=== PATIENT | male | born 1950 | race Caucasian/White ===

== ENCOUNTER 2022-06-03 17:00 | Inpatient (IN) ==
[2022-06-03] MEDS ORDERED: Ipratropium/Albuterol Neb 3 ML IH PRN (17:09)
[2022-06-03] MEDS ORDERED: *HR* Dextrose 50 % in Water (Syg) 50 ML SYRINGE IVP PRN (17:14)
[2022-06-03] MEDS ORDERED: D5% in Water 1,000 ML IVC PRN (17:14)
[2022-06-03] MEDS ORDERED: Dextrose Gel 15 GM/37.5 ML TUBE PO PRN ×2 (17:14)
[2022-06-03] MEDS ORDERED: Ondansetron ODT 4 MG TAB.RAPDIS SL PRN (17:16)
[2022-06-03] MEDS: GlipiZIDE 5 MG TABLET PO SCH (20:44)
[2022-06-03] MEDS: *HR* Heparin 5,000 UNIT/ML VIAL SQ SCH (20:44)
[2022-06-03] MEDS: Melatonin 3 MG TABLET PO SCH (20:45)
[2022-06-03] MEDS: Pregabalin 50 MG CAPSULE PO SCH (20:45)
[2022-06-03] MEDS: *HR* Metformin 500 MG TABLET PO SCH (20:46)
[2022-06-03] MEDS: Insulin LISPRO 300 UNITS/3 ML VIAL SUBQ SCH (20:53)
[2022-06-03] MEDS: Acetaminophen 325 MG TABLET PO PRN (20:58)
[2022-06-03] MEDS: Latanoprost 2.5 ML BOTTLE BOTH EYES SCH (20:59)
[2022-06-03] MEDS ORDERED: [UNRECOGNIZED DRUG - OTHER] BOTH EYES SCH (21:00)
[2022-06-03] MEDS ORDERED: Insulin DETEMIR 100 UNIT/ML per UNIT SUBQ ONE (21:00)
[2022-06-03] MEDS ORDERED: PROPYLENE GLYCOL BOTH EYES SCH (21:00)
[2022-06-03] MEDS ORDERED: GLYCERIN BOTH EYES SCH (21:00)
[2022-06-03] MEDS: Budesonide/Formoterol 160/4.5 1 PUFF INH IH SCH (21:54)
[2022-06-03] MEDS: Ipratropium/Albuterol Neb 3 ML IH SCH (21:54)
[2022-06-04] MEDS: *HR* Heparin 5,000 UNIT/ML VIAL SQ SCH ×2 (05:47→17:00)
[2022-06-04 08:12] LABS: Basophils # 0.2 K/mcL (0.0-0.2); Eosinophils # 0.4 K/mcL (0.0-0.6); Eosinophils % 1.7 %; Hematocrit 42.6 % (37.5-50.1); Immature Granulocytes % 2.6 % (0-4); Lymphocytes # 7.3 K/mcL (0.6-4.6); Lymphocytes % 32.5 %; Mean Corpuscular HGB Conc 32.9 g/dL (31.6-35.5); Mean Corpuscular Hemoglobin 28.5 pg (28.0-33.3); Mean Corpuscular Volume 86.8 fL (83.0-100.0); Mean Platelet Volume 12.9 fL (9.4-12.4); Monocytes # 1.2 K/mcL (0.0-1.3); Monocytes % 5.3 %; Neutrophils # 12.8 K/mcL (1.6-8.9); Platelet Count 268 K/mcL (140-400); Red Blood Count 4.91 M/mcL (4.19-5.50); Red Cell Distribution Width 14.4 % (11.5-14.5); Segmented Neutrophils % 56.9 %; White Blood Count 22.5 K/mcL (4.3-11.1)
[2022-06-04 08:33] LABS: BUN/Creatinine Ratio 37 (6-26); Blood Urea Nitrogen 32 mg/dL (8-23); Calcium 9.2 mg/dL (8.6-10.3); Carbon Dioxide 28 mEq/L (23-29); Chloride 99 mEq/L (98-107); Glucose 131 mg/dL (70-105); Osmolality,Calculated 295 (280-300); Potassium 3.6 mEq/L (3.5-5.1); Sodium 138 mEq/L (136-145)
[2022-06-04] MEDS: Ipratropium/Albuterol Neb 3 ML IH SCH ×3 (08:56→22:05)
[2022-06-04] MEDS: Budesonide/Formoterol 160/4.5 1 PUFF INH IH SCH ×2 (08:56→22:05)
[2022-06-04] MEDS ORDERED: Insulin DETEMIR 100 UNIT/ML X5UNITS SUBQ SCH (09:00)
[2022-06-04 09:13] LABS: Platelet Estimate Normal (Normal); Reactive Lymphocytes Present (Not Present)
[2022-06-04] MEDS: predniSONE 20 MG TABLET PO SCH (10:25)
[2022-06-04] MEDS: *HR* Metformin 500 MG TABLET PO SCH ×2 (10:26→20:15)
[2022-06-04] MEDS: FLUoxetine 20 MG CAPSULE PO SCH (10:26)
[2022-06-04] MEDS: Furosemide 40 MG TABLET PO SCH (10:26)
[2022-06-04] MEDS: Pregabalin 50 MG CAPSULE PO SCH ×2 (10:26→20:15)
[2022-06-04] MEDS: Aspirin Enteric Coated 81 MG Tablet PO SCH (10:26)
[2022-06-04] MEDS: GlipiZIDE 5 MG TABLET PO SCH ×2 (10:26→20:17)
[2022-06-04] MEDS: Insulin DETEMIR 100 UNIT/ML X5UNITS SUBQ SCH ×2 (10:27→20:14)
[2022-06-04] MEDS: Nystatin POWDER 30 GM BOTTLE TP SCH ×2 (10:27→20:19)
[2022-06-04] MEDS: lisinopriL 20 MG TABLET PO SCH (10:27)
[2022-06-04] MEDS: Insulin LISPRO 300 UNITS/3 ML VIAL SUBQ SCH ×4 (10:54→20:13)
[2022-06-04] MEDS: Melatonin 3 MG TABLET PO SCH (20:15)
[2022-06-04] MEDS: Acetaminophen 325 MG TABLET PO PRN (20:15)
[2022-06-04] MEDS: Latanoprost 2.5 ML BOTTLE BOTH EYES SCH (20:18)
[2022-06-05] MEDS: *HR* Heparin 5,000 UNIT/ML VIAL SQ SCH ×2 (05:42→16:07)
[2022-06-05 07:38] LABS: Hematocrit 40.2 % (37.5-50.1); Mean Corpuscular HGB Conc 32.3 g/dL (31.6-35.5); Mean Corpuscular Hemoglobin 28.1 pg (28.0-33.3); Mean Platelet Volume 12.6 fL (9.4-12.4); Platelet Count 248 K/mcL (140-400); Red Blood Count 4.62 M/mcL (4.19-5.50); Red Cell Distribution Width 14.8 % (11.5-14.5); White Blood Count 23.9 K/mcL (4.3-11.1)
[2022-06-05] MEDS: Ipratropium/Albuterol Neb 3 ML IH SCH ×3 (07:42→20:57)
[2022-06-05] MEDS: Budesonide/Formoterol 160/4.5 1 PUFF INH IH SCH ×2 (07:42→20:57)
[2022-06-05] MEDS: Pregabalin 50 MG CAPSULE PO SCH ×2 (09:08→21:16)
[2022-06-05] MEDS: Furosemide 40 MG TABLET PO SCH (09:08)
[2022-06-05] MEDS: FLUoxetine 20 MG CAPSULE PO SCH (09:08)
[2022-06-05] MEDS: Insulin DETEMIR 100 UNIT/ML X5UNITS SUBQ SCH ×2 (09:09→21:17)
[2022-06-05] MEDS: Aspirin Enteric Coated 81 MG Tablet PO SCH (09:09)
[2022-06-05] MEDS: predniSONE 20 MG TABLET PO SCH (09:09)
[2022-06-05] MEDS: GlipiZIDE 5 MG TABLET PO SCH ×2 (09:09→21:14)
[2022-06-05] MEDS: lisinopriL 20 MG TABLET PO SCH (09:09)
[2022-06-05] MEDS: *HR* Metformin 500 MG TABLET PO SCH ×2 (09:09→16:07)
[2022-06-05] MEDS: Insulin LISPRO 300 UNITS/3 ML VIAL SUBQ SCH ×4 (09:21→21:19)
[2022-06-05] MEDS: Nystatin POWDER 30 GM BOTTLE TP SCH ×2 (09:21→21:17)
[2022-06-05] MEDS: Latanoprost 2.5 ML BOTTLE BOTH EYES SCH (21:16)
[2022-06-05] MEDS: Melatonin 3 MG TABLET PO SCH (21:16)
[2022-06-06] MEDS: *HR* Heparin 5,000 UNIT/ML VIAL SQ SCH ×2 (06:06→17:22)
[2022-06-06 07:45] LABS: Hematocrit 40.5 % (37.5-50.1); Hemoglobin 13.1 g/dL (12.9-16.9); Mean Corpuscular HGB Conc 32.3 g/dL (31.6-35.5); Mean Corpuscular Hemoglobin 28.1 pg (28.0-33.3); Mean Corpuscular Volume 86.7 fL (83.0-100.0); Mean Platelet Volume 12.6 fL (9.4-12.4); Platelet Count 251 K/mcL (140-400); Red Blood Count 4.67 M/mcL (4.19-5.50); Red Cell Distribution Width 14.9 % (11.5-14.5); White Blood Count 25.4 K/mcL (4.3-11.1)
[2022-06-06 08:06] LABS: Calcium 9.3 mg/dL (8.6-10.3)
[2022-06-06] MEDS: FLUoxetine 20 MG CAPSULE PO SCH (10:05)
[2022-06-06] MEDS: *HR* Metformin 500 MG TABLET PO SCH ×2 (10:06→15:36)
[2022-06-06] MEDS: Furosemide 40 MG TABLET PO SCH (10:06)
[2022-06-06] MEDS: Insulin DETEMIR 100 UNIT/ML X5UNITS SUBQ SCH ×2 (10:06→21:27)
[2022-06-06] MEDS: Aspirin Enteric Coated 81 MG Tablet PO SCH (10:06)
[2022-06-06] MEDS: lisinopriL 20 MG TABLET PO SCH (10:07)
[2022-06-06] MEDS: Nystatin POWDER 30 GM BOTTLE TP SCH ×2 (10:07→21:34)
[2022-06-06] MEDS: Pregabalin 50 MG CAPSULE PO SCH ×2 (10:07→21:26)
[2022-06-06] MEDS: GlipiZIDE 5 MG TABLET PO SCH ×2 (10:07→21:26)
[2022-06-06] MEDS: predniSONE 20 MG TABLET PO SCH (10:07)
[2022-06-06] MEDS: Insulin LISPRO 300 UNITS/3 ML VIAL SUBQ SCH ×4 (10:08→21:28)
[2022-06-06] MEDS: Budesonide/Formoterol 160/4.5 1 PUFF INH IH SCH ×2 (10:50→21:16)
[2022-06-06] MEDS: Ipratropium/Albuterol Neb 3 ML IH SCH ×3 (10:50→21:16)
[2022-06-06] MEDS: Melatonin 3 MG TABLET PO SCH (21:26)
[2022-06-06] MEDS: Latanoprost 2.5 ML BOTTLE BOTH EYES SCH (21:34)
[2022-06-07] MEDS: *HR* Heparin 5,000 UNIT/ML VIAL SQ SCH ×2 (05:00→17:13)
[2022-06-07] MEDS: Insulin LISPRO 300 UNITS/3 ML VIAL SUBQ SCH ×4 (07:31→20:43)
[2022-06-07] MEDS: FLUoxetine 20 MG CAPSULE PO SCH (08:28)
[2022-06-07] MEDS: *HR* Metformin 500 MG TABLET PO SCH ×2 (08:29→16:32)
[2022-06-07] MEDS: Furosemide 40 MG TABLET PO SCH (08:30)
[2022-06-07] MEDS: Aspirin Enteric Coated 81 MG Tablet PO SCH (08:30)
[2022-06-07] MEDS: Pregabalin 50 MG CAPSULE PO SCH ×2 (08:31→20:42)
[2022-06-07] MEDS: predniSONE 10 MG TABLET PO SCH (08:31)
[2022-06-07] MEDS: GlipiZIDE 5 MG TABLET PO SCH ×2 (08:31→20:42)
[2022-06-07] MEDS: Nystatin POWDER 30 GM BOTTLE TP SCH ×2 (08:37→20:44)
[2022-06-07] MEDS: Ipratropium/Albuterol Neb 3 ML IH SCH ×3 (09:10→22:18)
[2022-06-07] MEDS: Budesonide/Formoterol 160/4.5 1 PUFF INH IH SCH ×2 (09:10→22:18)
[2022-06-07] MEDS: Insulin DETEMIR 100 UNIT/ML X5UNITS SUBQ SCH ×2 (09:53→20:42)
[2022-06-07] MEDS: lisinopriL 20 MG TABLET PO SCH (09:57)
[2022-06-07] MEDS: Acetaminophen 325 MG TABLET PO PRN (20:41)
[2022-06-07] MEDS: Melatonin 3 MG TABLET PO SCH (20:42)
[2022-06-07] MEDS: Latanoprost 2.5 ML BOTTLE BOTH EYES SCH (20:44)
[2022-06-08] MEDS: *HR* Heparin 5,000 UNIT/ML VIAL SQ SCH ×2 (05:54→17:30)
[2022-06-08] MEDS: FLUoxetine 20 MG CAPSULE PO SCH (09:05)
[2022-06-08] MEDS: Aspirin Enteric Coated 81 MG Tablet PO SCH (09:06)
[2022-06-08] MEDS: GlipiZIDE 5 MG TABLET PO SCH ×2 (09:06→20:36)
[2022-06-08] MEDS: Pregabalin 50 MG CAPSULE PO SCH ×2 (09:06→20:36)
[2022-06-08] MEDS: lisinopriL 20 MG TABLET PO SCH (09:06)
[2022-06-08] MEDS: Furosemide 40 MG TABLET PO SCH (09:06)
[2022-06-08] MEDS: *HR* Metformin 500 MG TABLET PO SCH ×2 (09:06→17:30)
[2022-06-08] MEDS: predniSONE 10 MG TABLET PO SCH (09:06)
[2022-06-08] MEDS: Insulin DETEMIR 100 UNIT/ML X5UNITS SUBQ SCH ×2 (09:07→20:36)
[2022-06-08] MEDS: Insulin LISPRO 300 UNITS/3 ML VIAL SUBQ SCH ×4 (09:10→20:37)
[2022-06-08] MEDS: Budesonide/Formoterol 160/4.5 1 PUFF INH IH SCH ×2 (09:38→21:15)
[2022-06-08] MEDS: Ipratropium/Albuterol Neb 3 ML IH SCH ×3 (09:39→21:15)
[2022-06-08] MEDS: Nystatin POWDER 30 GM BOTTLE TP SCH ×2 (11:24→20:39)
[2022-06-08] MEDS: Acetaminophen 325 MG TABLET PO PRN (20:35)
[2022-06-08] MEDS: Melatonin 3 MG TABLET PO SCH (20:36)
[2022-06-08] MEDS: Latanoprost 2.5 ML BOTTLE BOTH EYES SCH (20:39)
[2022-06-09] MEDS: *HR* Heparin 5,000 UNIT/ML VIAL SQ SCH ×2 (05:32→16:21)
[2022-06-09] MEDS: Budesonide/Formoterol 160/4.5 1 PUFF INH IH SCH ×2 (07:54→20:50)
[2022-06-09] MEDS: Ipratropium/Albuterol Neb 3 ML IH SCH ×3 (07:54→20:49)
[2022-06-09] MEDS: predniSONE 10 MG TABLET PO SCH (08:30)
[2022-06-09] MEDS: Aspirin Enteric Coated 81 MG Tablet PO SCH (08:30)
[2022-06-09] MEDS: FLUoxetine 20 MG CAPSULE PO SCH (08:31)
[2022-06-09] MEDS: Furosemide 40 MG TABLET PO SCH (08:31)
[2022-06-09] MEDS: GlipiZIDE 5 MG TABLET PO SCH ×2 (08:31→20:25)
[2022-06-09] MEDS: Pregabalin 50 MG CAPSULE PO SCH ×2 (08:31→20:25)
[2022-06-09] MEDS: *HR* Metformin 500 MG TABLET PO SCH ×2 (08:32→16:21)
[2022-06-09] MEDS: lisinopriL 20 MG TABLET PO SCH (08:32)
[2022-06-09] MEDS: Insulin LISPRO 300 UNITS/3 ML VIAL SUBQ SCH ×4 (08:33→20:30)
[2022-06-09] MEDS: Nystatin POWDER 30 GM BOTTLE TP SCH ×2 (08:33→20:31)
[2022-06-09] MEDS: Insulin DETEMIR 100 UNIT/ML X5UNITS SUBQ SCH ×2 (08:46→20:26)
[2022-06-09] MEDS: Melatonin 3 MG TABLET PO SCH (20:25)
[2022-06-09] MEDS: Acetaminophen 325 MG TABLET PO PRN (20:25)
[2022-06-09] MEDS: Latanoprost 2.5 ML BOTTLE BOTH EYES SCH (20:30)
[2022-06-10] MEDS: *HR* Heparin 5,000 UNIT/ML VIAL SQ SCH ×2 (05:37→16:45)
[2022-06-10 05:40] LABS: Basophils # 0.2 K/mcL (0.0-0.2); Basophils % 1.1 %; Eosinophils # 0.5 K/mcL (0.0-0.6); Eosinophils % 2.9 %; Hematocrit 39.8 % (37.5-50.1); Hemoglobin 12.9 g/dL (12.9-16.9); Immature Granulocytes % 1.6 % (0-4); Lymphocytes # 5.8 K/mcL (0.6-4.6); Lymphocytes % 31.9 %; Mean Corpuscular HGB Conc 32.4 g/dL (31.6-35.5); Mean Corpuscular Hemoglobin 28.1 pg (28.0-33.3); Mean Corpuscular Volume 86.7 fL (83.0-100.0); Mean Platelet Volume 12.4 fL (9.4-12.4); Monocytes % 5.4 %; Neutrophils # 10.5 K/mcL (1.6-8.9); Platelet Count 239 K/mcL (140-400); Red Blood Count 4.59 M/mcL (4.19-5.50); Red Cell Distribution Width 15.2 % (11.5-14.5); Segmented Neutrophils % 57.1 %; White Blood Count 18.3 K/mcL (4.3-11.1)
[2022-06-10 06:02] LABS: Calcium 9.6 mg/dL (8.6-10.3)
[2022-06-10] MEDS: Insulin LISPRO 300 UNITS/3 ML VIAL SUBQ SCH ×4 (07:25→21:00)
[2022-06-10] MEDS: Ipratropium/Albuterol Neb 3 ML IH SCH ×3 (07:42→20:55)
[2022-06-10] MEDS: Budesonide/Formoterol 160/4.5 1 PUFF INH IH SCH ×2 (07:42→20:55)
[2022-06-10] MEDS: FLUoxetine 20 MG CAPSULE PO SCH (08:43)
[2022-06-10] MEDS: Aspirin Enteric Coated 81 MG Tablet PO SCH (08:43)
[2022-06-10] MEDS: predniSONE 10 MG TABLET PO SCH (08:43)
[2022-06-10] MEDS: GlipiZIDE 5 MG TABLET PO SCH ×2 (08:43→20:15)
[2022-06-10] MEDS: Furosemide 40 MG TABLET PO SCH (08:44)
[2022-06-10] MEDS: lisinopriL 20 MG TABLET PO SCH ×2 (08:44→11:00)
[2022-06-10] MEDS: *HR* Metformin 500 MG TABLET PO SCH ×2 (08:44→16:44)
[2022-06-10] MEDS: Pregabalin 50 MG CAPSULE PO SCH ×2 (08:44→20:15)
[2022-06-10] MEDS: Nystatin POWDER 30 GM BOTTLE TP SCH ×2 (10:25→20:13)
[2022-06-10] MEDS: Insulin DETEMIR 100 UNIT/ML X5UNITS SUBQ SCH ×2 (12:53→20:15)
[2022-06-10] MEDS: Latanoprost 2.5 ML BOTTLE BOTH EYES SCH (20:14)
[2022-06-10] MEDS: Acetaminophen 325 MG TABLET PO PRN (20:15)
[2022-06-10] MEDS: Melatonin 3 MG TABLET PO SCH (20:15)
[2022-06-11] MEDS: *HR* Metformin 500 MG TABLET PO SCH ×2 (06:51→16:48)
[2022-06-11] MEDS: *HR* Heparin 5,000 UNIT/ML VIAL SQ SCH ×2 (06:51→16:49)
[2022-06-11] MEDS: Ipratropium/Albuterol Neb 3 ML IH SCH ×3 (07:54→21:34)
[2022-06-11] MEDS: Budesonide/Formoterol 160/4.5 1 PUFF INH IH SCH ×2 (07:54→21:34)
[2022-06-11] MEDS: Insulin LISPRO 300 UNITS/3 ML VIAL SUBQ SCH ×4 (08:50→22:03)
[2022-06-11] MEDS: GlipiZIDE 5 MG TABLET PO SCH ×2 (09:09→22:00)
[2022-06-11] MEDS: FLUoxetine 20 MG CAPSULE PO SCH (09:09)
[2022-06-11] MEDS: lisinopriL 20 MG TABLET PO SCH (09:10)
[2022-06-11] MEDS: Aspirin Enteric Coated 81 MG Tablet PO SCH (09:10)
[2022-06-11] MEDS: Pregabalin 50 MG CAPSULE PO SCH ×2 (09:10→22:01)
[2022-06-11] MEDS: Furosemide 40 MG TABLET PO SCH (09:10)
[2022-06-11] MEDS: Nystatin POWDER 30 GM BOTTLE TP SCH ×2 (09:46→22:05)
[2022-06-11] MEDS: Insulin DETEMIR 100 UNIT/ML X5UNITS SUBQ SCH ×2 (10:04→22:01)
[2022-06-11] MEDS: predniSONE 10 MG TABLET PO SCH (12:01)
[2022-06-11] MEDS: Acetaminophen 325 MG TABLET PO PRN (22:01)
[2022-06-11] MEDS: Melatonin 3 MG TABLET PO SCH (22:01)
[2022-06-11] MEDS: Latanoprost 2.5 ML BOTTLE BOTH EYES SCH (22:04)
[2022-06-12] MEDS: *HR* Heparin 5,000 UNIT/ML VIAL SQ SCH ×2 (06:36→17:27)
[2022-06-12] MEDS: *HR* Metformin 500 MG TABLET PO SCH ×2 (09:02→17:27)
[2022-06-12] MEDS: Insulin LISPRO 300 UNITS/3 ML VIAL SUBQ SCH ×5 (09:02→21:02)
[2022-06-12] MEDS: Pregabalin 50 MG CAPSULE PO SCH ×2 (09:02→20:59)
[2022-06-12] MEDS: FLUoxetine 20 MG CAPSULE PO SCH (09:02)
[2022-06-12] MEDS: Aspirin Enteric Coated 81 MG Tablet PO SCH (09:03)
[2022-06-12] MEDS: lisinopriL 20 MG TABLET PO SCH (09:03)
[2022-06-12] MEDS: Furosemide 40 MG TABLET PO SCH (09:03)
[2022-06-12] MEDS: GlipiZIDE 5 MG TABLET PO SCH ×2 (09:03→21:00)
[2022-06-12] MEDS: Insulin DETEMIR 100 UNIT/ML X5UNITS SUBQ SCH (09:07)
[2022-06-12] MEDS: Nystatin POWDER 30 GM BOTTLE TP SCH ×2 (09:07→21:01)
[2022-06-12] MEDS: Ipratropium/Albuterol Neb 3 ML IH SCH ×3 (09:10→21:21)
[2022-06-12] MEDS: Budesonide/Formoterol 160/4.5 1 PUFF INH IH SCH ×2 (09:10→21:21)
[2022-06-12] MEDS: Acetaminophen 325 MG TABLET PO PRN (15:56)
[2022-06-12] MEDS: Melatonin 3 MG TABLET PO SCH (20:59)
[2022-06-12] MEDS: Latanoprost 2.5 ML BOTTLE BOTH EYES SCH (21:01)
[2022-06-13] MEDS: *HR* Heparin 5,000 UNIT/ML VIAL SQ SCH ×2 (05:09→17:18)
[2022-06-13] MEDS: Insulin LISPRO 300 UNITS/3 ML VIAL SUBQ SCH ×3 (08:20→16:46)
[2022-06-13] MEDS: Budesonide/Formoterol 160/4.5 1 PUFF INH IH SCH ×2 (08:54→21:25)
[2022-06-13] MEDS: Ipratropium/Albuterol Neb 3 ML IH SCH ×3 (08:54→21:24)
[2022-06-13] MEDS: Insulin DETEMIR 100 UNIT/ML X5UNITS SUBQ SCH (10:26)
[2022-06-13] MEDS: FLUoxetine 20 MG CAPSULE PO SCH (10:51)
[2022-06-13] MEDS: GlipiZIDE 5 MG TABLET PO SCH ×2 (10:51→20:47)
[2022-06-13] MEDS: *HR* Metformin 500 MG TABLET PO SCH ×2 (10:51→16:50)
[2022-06-13] MEDS: Furosemide 40 MG TABLET PO SCH (10:52)
[2022-06-13] MEDS: Pregabalin 50 MG CAPSULE PO SCH ×2 (10:52→20:47)
[2022-06-13] MEDS: Aspirin Enteric Coated 81 MG Tablet PO SCH (10:53)
[2022-06-13] MEDS: lisinopriL 20 MG TABLET PO SCH ×2 (12:01→19:16)
[2022-06-13] MEDS: Nystatin POWDER 30 GM BOTTLE TP SCH ×2 (12:02→20:50)
[2022-06-13] MEDS: Melatonin 3 MG TABLET PO SCH (20:47)
[2022-06-13] MEDS: Latanoprost 2.5 ML BOTTLE BOTH EYES SCH (20:48)
[2022-06-14] MEDS: *HR* Heparin 5,000 UNIT/ML VIAL SQ SCH ×2 (06:02→16:53)
[2022-06-14] MEDS: Pregabalin 50 MG CAPSULE PO SCH ×2 (08:10→20:07)
[2022-06-14] MEDS: Furosemide 40 MG TABLET PO SCH (08:10)
[2022-06-14] MEDS: GlipiZIDE 5 MG TABLET PO SCH (08:11)
[2022-06-14] MEDS: FLUoxetine 20 MG CAPSULE PO SCH (08:11)
[2022-06-14] MEDS: Aspirin Enteric Coated 81 MG Tablet PO SCH (08:12)
[2022-06-14] MEDS: *HR* Metformin 500 MG TABLET PO SCH ×2 (08:12→16:53)
[2022-06-14] MEDS: Insulin LISPRO 300 UNITS/3 ML VIAL SUBQ SCH ×2 (08:13→11:42)
[2022-06-14] MEDS: Nystatin POWDER 30 GM BOTTLE TP SCH ×2 (08:15→20:08)
[2022-06-14 08:22] LABS: Basophils # 0.2 K/mcL (0.0-0.2); Basophils % 1.1 %; Eosinophils # 0.4 K/mcL (0.0-0.6); Eosinophils % 2.8 %; Hematocrit 37.2 % (37.5-50.1); Immature Granulocytes % 0.9 % (0-4); Lymphocytes # 2.8 K/mcL (0.6-4.6); Lymphocytes % 18.6 %; Mean Corpuscular HGB Conc 32.3 g/dL (31.6-35.5); Mean Corpuscular Hemoglobin 28.7 pg (28.0-33.3); Mean Platelet Volume 11.8 fL (9.4-12.4); Monocytes # 0.8 K/mcL (0.0-1.3); Monocytes % 5.2 %; Neutrophils # 10.6 K/mcL (1.6-8.9); Platelet Count 193 K/mcL (140-400); Red Blood Count 4.18 M/mcL (4.19-5.50); Segmented Neutrophils % 71.4 %; White Blood Count 14.8 K/mcL (4.3-11.1)
[2022-06-14 08:46] LABS: BUN/Creatinine Ratio 22 (6-26); Blood Urea Nitrogen 19 mg/dL (8-23); Calcium 8.8 mg/dL (8.6-10.3); Carbon Dioxide 27 mEq/L (23-29); Chloride 99 mEq/L (98-107); Glucose 241 mg/dL (70-105); Osmolality,Calculated 290 (280-300); Potassium 4.3 mEq/L (3.5-5.1); Sodium 135 mEq/L (136-145)
[2022-06-14] MEDS: Budesonide/Formoterol 160/4.5 1 PUFF INH IH SCH ×2 (09:31→20:17)
[2022-06-14] MEDS: Ipratropium/Albuterol Neb 3 ML IH SCH ×3 (09:33→20:17)
[2022-06-14] MEDS: lisinopriL 20 MG TABLET PO SCH (10:46)
[2022-06-14] MEDS ORDERED: Insulin LISPRO 300 UNITS/3 ML VIAL SUBQ SCH (16:30)
[2022-06-14 19:24] VITALS: BP 120/78; PULSE 101; RESP 18; TEMP 98.1; O2SAT 95
[2022-06-14] MEDS: Melatonin 3 MG TABLET PO SCH (20:07)
[2022-06-14] MEDS: Acetaminophen 325 MG TABLET PO PRN (20:07)
[2022-06-14] MEDS: Latanoprost 2.5 ML BOTTLE BOTH EYES SCH (20:08)
[2022-06-14] MEDS ORDERED: GlipiZIDE 5 MG TABLET PO SCH (21:00)
[2022-06-15] MEDS ORDERED: Magnesium Oxide 400 MG TABLET PO SCH (09:00)
== END 2022-06-14 23:59 | disposition other institution (70) | DRG 190 ==
LOC: INPPIK 18:43 → SUATTDRO 18:43 → INPPIK 06-06 19:17
PROVIDERS: ADMIT Internal Medicine; ATTEND Family Medicine